=== PATIENT | female | born 1980 | race Hispanic/Latino ===

== ENCOUNTER 2019-01-31 14:47 | Outpatient (CLI) | payer OTHER ==
--- NOTE | 2019-01-31 15:59 | ULT ---
OB ULTRASOUND: HISTORY: anatomy. FINDINGS: A single live intrauterine gestation is seen with measurements corresponding to an estimated gestatio nal age of 20 weeks 4 days and KEE at 06/16/2019. The estimated weight measures 365 gm or 13 ou nces. This corresponds to 50th percentile by Hadlock criteria. measurements are as follows: BPD 4.75 cm, 20 weeks 3 days HC 17.40 cm, 20 weeks 0 days AC 15.49 cm, 20 weeks 5 days FL 3.41 cm, 20 weeks 6 days heart rate measures 1.2 b.p.m. Placenta is anterior and to the maternal left without placenta previa. VALERIE measures 10.5 cm. Cervical length measures 3.2 cm. Three-vessel cord, cord insertion, kidneys, bladder, stomach, 4-chamber heart, lateral ventricl es, cerebellum, spine, and lips/nose, upper and lower extremities are visualized. No definite anomalies are seen. IMPRESSION: Single live intrauterine of 20 weeks 4 days estimated gestational age and estimated date of delivery of 06/16/2019. POS: PRITI
== END 2019-01-31 14:48 | disposition home or self-care (01) ==
LOC: BICULT 14:47
PROVIDERS: ATTEND Family Medicine
DX: O09.522 Supervision of elderly multigravida, second trimester (principal); Z3A.20 20 weeks gestation of pregnancy
CPT/HCPCS: 76805

== ENCOUNTER 2019-06-10 09:48 | Inpatient (IN) | payer MEDICAID, OTHER, SELFPAY ==
[2019-06-10] MEDS ORDERED: CEFAZOLIN 2 GM in Premix Bag 1 BAG IVPB SCH (10:11)
[2019-06-10] MEDS ORDERED: Bicitra 30 ML UDCUP PO SCH (10:11)
[2019-06-10] MEDS ORDERED: Promethazine HCl 25 MG/ML VIAL IM PRN ×3 (10:11→14:57)
[2019-06-10] MEDS ORDERED: Ondansetron PF 4 MG/2 ML Vial IVP PRN ×3 (10:11→14:57)
[2019-06-10] MEDS ORDERED: hydrALAZINE 20 MG/ML VIAL SLOW IVP PRN ×2 (10:11→14:57)
[2019-06-10 10:33] VITALS: BMI 30.9
[2019-06-10] MEDS: Lactated Ringer's 1,000 ML IV SCH ×2 (10:41→18:23)
[2019-06-10 10:54] LABS: Hemoglobin 12.4 g/dL (12.0-16.0); Mean Corpuscular HGB CONC 34.7 g/dL (32.0-36.0); Mean Corpuscular Hemoglobin 29.3 pg (27.0-31.0); Mean Corpuscular Volume 84.4 fL (78.0-98.0); Mean Platelet Volume 7.5 fL (7.4-10.4); Platelet Count 227 thou/uL (130-400); RBC Distribution Width 13.4 % (11.5-14.5); Red Blood Cell (RBC) Count 4.22 mill/uL (4.20-5.40)
[2019-06-10 11:31] LABS: HBSAg Index 0.16 S/CO (0-0.99); Hep B Surf Ag Non-Reactive S/CO (NonReactive)
[2019-06-10 11:32] LABS: Syphilis Antibody Nonreactive (Nonreactive); Syphilis Antibody Index 0.05 S/CO (<1.00 Non-Reactive)
[2019-06-10] MEDS ORDERED: MORPHINE 5 MG/10 ML PF VIAL ONE (11:55)
[2019-06-10] MEDS ORDERED: Oxytocin 10 UNITS/ML VIAL ONE ×3 (11:55→12:38)
[2019-06-10] MEDS ORDERED: diphenhydrAMINE 50 MG/ML VIAL IVP PRN (12:45)
[2019-06-10] MEDS ORDERED: Naloxone HCl 0.4 mg/ml Vial IVP PRN ×2 (12:45)
[2019-06-10] MEDS ORDERED: Ketorolac Tromethamine 30 MG/ML VIAL IVP SCH (12:45)
[2019-06-10] MEDS ORDERED: Naloxone HCl 0.4 mg/ml Vial IV PRN (12:45)
[2019-06-10] MEDS ORDERED: Ketorolac Tromethamine 30 MG/ML VIAL IVP PRN ×2 (12:45→21:00)
[2019-06-10] MEDS ORDERED: HYDROmorphone 2 MG/ML VIAL SLOW IVP PRN (12:45)
[2019-06-10] MEDS ORDERED: Ondansetron HCl/PF 4 MG/2 ML Vial IVP PRN (12:45)
[2019-06-10] MEDS ORDERED: Communication Order-Pharmacy FS SCH (12:45)
[2019-06-10] MEDS ORDERED: Promethazine HCl 25 MG SUPP PR PRN (12:45)
[2019-06-10] MEDS ORDERED: Meperidine HCl/PF 25 MG/ML VIAL SLOW IVP PRN (12:45)
[2019-06-10] MEDS ORDERED: L&D-Morphine 4 MG/ML VIAL SLOW IVP PRN (12:45)
[2019-06-10] MEDS ORDERED: Lanolin Ointment 7 GM TUBE TOP PRN (14:57)
[2019-06-10] MEDS ORDERED: diphenhydrAMINE 25 MG CAP PO PRN (14:57)
[2019-06-10] MEDS ORDERED: Simethicone Chewable 80 MG TAB PO PRN (14:57)
[2019-06-10] MEDS ORDERED: NS / Oxytocin 40 units/1000ml 1,000 ML IV SCH (14:57)
[2019-06-10] MEDS ORDERED: Bisacodyl 10 MG SUPP PR PRN (14:57)
[2019-06-10] MEDS ORDERED: Adacel (T-DAP) 0.5 ML SYRINGE IM ONE (14:57)
[2019-06-10] MEDS: Ketorolac Tromethamine 30 MG/ML VIAL IVP SCH (18:21)
--- NOTE | 2019-06-10 18:38 | OP ---
DATE OF PROCEDURE: 06/10/2019 PROCEDURE PERFORMED: . SURGEON: Chidi Rose MD PROCTORING SURGEON: Zaki Eng MD ANESTHESIA: Spinal. QUANTITATIVE BLOOD LOSS: 485 mL. PREOPERATIVE DIAGNOSES: 1. Term single intrauterine at 39 weeks. 2. Advanced maternal age. 3. History of previous x1. POSTPROCEDURAL DIAGNOSES: 1. Term intrauterine , delivered. 2. Advanced maternal age. 3. History of previous x1. 4. Left ovarian cyst. INDICATIONS FOR PROCEDURE: Ms. Quincy Veras is a 38-year-old 2, para 1 , at 39.0 weeks, who presents for elective repeat section. PROCEDURE IN DETAIL: After risks, benefits, and alternatives were explained, the patient provided informed consent. She was taken to the operating room and spinal anesthesia was initiated. She had received preoperative antibiotics of Ancef 2 g prior to the start of the case. The patient was placed in the supine position with left lateral tilt and prepped and draped in usual sterile fashion. A Pfannenstiel incision was made along her previous scar, which was carried down to the level of the fascia, which was sharply nicked. Briskly bleeding subcutaneous vessels were bovied at this time. The fascia was extended in a curvilinear fashion using curved Haskins scissors. Inferior and superior aspects of the fascia were then elevated and bluntly and sharply dissected away from the underlying rectus muscle. The rectus muscles were divided digitally and retracted manually. The peritoneal cavity was entered digitally and retracted manually. Bladder blade was placed and a bladder flap was created. A clean scalpel was used to make a low transverse incision. The uterine cavity was then entered digitally and the hysterotomy was extended in the caudocranial fashion. The infant was noted to be in the transverse position and had some difficulty being brought to the level of the hysterotomy. After two attempts, however, the was delivered at 1244 hours with no other complications. The delayed cord clamping was utilized and the cord was then cut and clamped and the infant was handed off to the awaiting resuscitative team. The uterus was then externalized and dry curetted with 2 laparotomy sponges. The hysterotomy was then closed using a running locking 0 Monocryl. Two [id number] stitches were then used to control additional bleeding along the hysterotomy. The abdomen was then irrigated and suctioned free of clots. Seprafilm was then applied before the uterus was returned to the abdomen. Hysterotomy was inspected one final time and noted to be hemostatic. The peritoneum was closed using a running 3-0 Vicryl stitch. The fascia was reapproximated using 0 PDS suture. Subcutaneous tissues were irrigated and additional bleeding vessels were cauterized at this time. A 3-0 Vicryl was used to reapproximate the subcutaneous tissue and the skin was reapproximated with anai. Counts were correct x3. The patient tolerated the procedure well and went to the unit for routine recovery and care. FINDINGS: 1. Viable male born at 1244 hours with Apgars of 8 and 9 at 1 and 5 minutes respectively. 2. Minimal abdominal adhesions. 3. Small adhesions on the ovaries bilaterally. 4. Small simple appearing cyst on the left ovary. Would warrant ultrasound for further evaluation and monitoring. The cyst was approximately 0.5 cm x 0.5 cm x 0.5 cm, unable to determine if simple or complex at this time. 5. Ruth catheter draining clear urine pre and postoperatively. Dr. Eng was present for the entire case and appropriate proctoring forms were completed following the case. Job ID: [id number] [facility]
[2019-06-10] MEDS ORDERED: Acetaminophen 1,000 MG in Premix Bag 1 BAG IVPB PRN (19:00)
[2019-06-11] MEDS: Ketorolac Tromethamine 30 MG/ML VIAL IVP SCH ×2 (00:08→05:42)
[2019-06-11] MEDS: Docusate Calcium (SURFAK) 240 MG CAP PO SCH ×3 (00:11→20:17)
[2019-06-11] MEDS ORDERED: HYDROcodone/Acetaminophen 5/325 mg Tablet PO PRN (00:45)
[2019-06-11] MEDS ORDERED: Meperidine HCl/PF 25 MG/ML VIAL IM PRN (00:45)
[2019-06-11 06:55] LABS: Hemoglobin 10.4 g/dL (12.0-16.0); Mean Corpuscular HGB CONC 34.8 g/dL (32.0-36.0); Mean Corpuscular Hemoglobin 29.7 pg (27.0-31.0); Mean Corpuscular Volume 85.3 fL (78.0-98.0); Mean Platelet Volume 7.5 fL (7.4-10.4); Platelet Count 187 thou/uL (130-400); RBC Distribution Width 13.1 % (11.5-14.5); White Blood Cell (WBC) Count 12.9 thou/uL (4.8-10.8)
[2019-06-11] MEDS: Prenatal Vitamin 1 TAB PO SCH (09:37)
[2019-06-11] MEDS: Ibuprofen 800 MG TAB PO SCH ×2 (14:24→21:28)
[2019-06-11] MEDS ORDERED: PHENYLEPHRINE-NS 100 MCG/ML 10 ML SYRINGE ONE (15:12)
[2019-06-11] MEDS ORDERED: Ondansetron PF 4 MG/2 ML Vial ONE (15:12)
[2019-06-11] MEDS ORDERED: Ketorolac Tromethamine 30 MG/ML VIAL ONE (15:12)
[2019-06-11] MEDS ORDERED: ePHEDrine 50 MG/ML VIAL ONE (15:12)
[2019-06-11] MEDS ORDERED: Metoclopramide HCl 10 MG/2 ML VIAL ONE (15:12)
[2019-06-11] MEDS ORDERED: Dexamethasone 20 MG/5 ML VIAL ONE (15:12)
[2019-06-11] MEDS ORDERED: Glycopyrrolate 0.2 MG/ML 5 ML SYRINGE ONE (15:12)
[2019-06-11] MEDS: HYDROcodone/Acetaminophen 5/325 mg Tablet PO PRN (20:17)
[2019-06-12] MEDS: Ibuprofen 800 MG TAB PO SCH ×2 (05:29→14:10)
[2019-06-12] MEDS: HYDROcodone/Acetaminophen 5/325 mg Tablet PO PRN ×2 (05:37→14:09)
[2019-06-12 11:38] VITALS: BP 110/61; TEMP 97.6
[2019-06-12] MEDS: Docusate Calcium (SURFAK) 240 MG CAP PO SCH (14:10)
[2019-06-12] MEDS: Prenatal Vitamin 1 TAB PO SCH (14:10)
== END 2019-06-12 14:40 | disposition home or self-care (01) | DRG 788 ==
LOC: L&D 09:48 → 3SE 15:23
PROVIDERS: ADMIT Family Medicine; ATTEND Family Medicine
PROC: 10D00Z1 Extraction of Products of Conception, Low, Open Approach (ICD-10-PCS; principal; 2019-06-11)
DX: O34.211 Maternal care for low transverse scar from previous cesarean delivery (principal); O34.83 Maternal care for other abnormalities of pelvic organs, third trimester; N83.202 Unspecified ovarian cyst, left side; Z3A.39 39 weeks gestation of pregnancy; Z37.0 Single live birth
CPT/HCPCS: 36415; 51702; 85027; 86780; 86850; 86900; 86901; 87340; 90715; J0131; J0690; J1100; J1885; J2274; J2405; J2590; J2765; J3490

== ENCOUNTER 2021-07-30 10:00 | Outpatient (CLI) | payer MEDICAID | END 2021-07-30 10:01 | disposition home or self-care (01) | LOC: BICMAMMO 10:00 | PROVIDERS: ATTEND Nurse Practitioner Women's Health | DX: N63.10 Unspecified lump in the right breast, unspecified quadrant (principal) | CPT/HCPCS: 77066; G0279 ==

== ENCOUNTER 2022-09-06 15:39 | Outpatient (CLI) | payer MEDICAID | END 2022-09-06 15:40 | disposition home or self-care (01) | LOC: BICMAMMO 15:39 | PROVIDERS: ATTEND Nurse Practitioner Family | DX: Z12.31 Encounter for screening mammogram for malignant neoplasm of breast (principal) | CPT/HCPCS: 77067 ==

== ENCOUNTER 2023-10-31 14:46 | Outpatient (CLI) | payer MEDICAID | END 2023-10-31 14:47 | disposition home or self-care (01) | LOC: BICMAMMO 14:46 | PROVIDERS: ATTEND Nurse Practitioner Family | DX: Z12.31 Encounter for screening mammogram for malignant neoplasm of breast (principal) | CPT/HCPCS: 77067 ==